=== PATIENT | female | born 1955 | race Caucasian/White ===

== ENCOUNTER 2021-07-12 18:02 | Inpatient (IN) | payer OTHER, MEDICAID ==
[~2021-07-12] VITALS: Ht 172.7 cm; Wt 90.7 kg
[~2021-07-12 18:02] MED LIST: ALEN70TA74; CLON0.5T10; DIVA500T2; LEVO50TA7; METO25TA5; PRAZ2CAP; QUET100T47 PO; SIMV-13; VENL150C58
[2021-07-12 18:31] LABS: Basophils # (auto) 0 10 ^3/uL (0-0.2); Basophils % (auto) 0.4 % (0.0-2.0); Eosinophils # (auto) 0.2 10 ^3/uL (0-0.8); Eosinophils % (auto) 5.1 % (0.0-7.0); Hematocrit 37.8 % (36.0-46.0); Hemoglobin 12.4 g/dL (12.2-16.2); Lymphocytes # (auto) 1.1 10 ^3/uL (0.4-5.4); Lymphocytes % (auto) 23.3 % (10.0-50.0); Mean Corpuscular Hemoglobin 29.4 pg (28.0-32.0); Mean Corpuscular Hgb Conc. 32.8 g/dL (32.0-36.0); Mean Corpuscular Volume 89.7 fL (80.0-100.0); Monocytes # (auto) 0.6 10 ^3/uL (0-1.3); Monocytes % (auto) 11.8 % (0.0-12.0); Neutrophils # (auto) 2.9 10 ^3/uL (1.6-8.6); Neutrophils % (auto) 59.4 % (37.0-80.0); Nucleated Red Blood Cells % 0.1 %; Red Blood Cells 4.22 10^6/uL (4.0-5.20); Red Cell Distribution Width 13.5 % (11.8-14.3); White Blood Cell 4.9 10^3/uL (4.4-10.8)
[2021-07-12 18:48] LABS: Albumin 3.3 g/dL (3.4-5.0); Anion Gap 2 (5-15); Blood Urea Nitrogen 12 mg/dL (7-18); Calcium 8.6 mg/dL (8.5-10.1); Carbon Dioxide 34 mmol/L (21-32); Chloride 100 mmol/L (98-107); Glucose 97 mg/dL (74-106); Potassium 4.5 mmol/L (3.5-5.1); Sodium 136 mmol/L (136-145)
[2021-07-12 18:56] LABS: Alanine Aminotransferase 23 U/L (13-56); Alkaline Phosphatase 64 U/L (45-117); Aspartate Aminotransferase 18 U/L (15-37); BUN/Creatinine Ratio 19.4; Bilirubin, Total 0.2 mg/dL (0.2-1.0); GFR African American 124 mL/min; GFR Non-African American 103 mL/min; Total Protein 6.8 g/dL (6.4-8.2)
[2021-07-12] MEDS ORDERED: VANCOMYCIN 1GM/250ML 250 ML IV ONE (22:15)
[2021-07-13] MEDS ORDERED: ONDANSETRON HCL 4 MG/2 ML VIAL IV PRN (01:00)
[2021-07-13] MEDS ORDERED: NITROGLYCERIN 0.4 MG SL TAB SL PRN (01:00)
[2021-07-13] MEDS ORDERED: VANCOMYCIN PER PHARMACY 0 MG IV SCH (01:00)
[2021-07-13] MEDS ORDERED: ACETAMINOPHEN 325 MG TAB PO PRN (01:00)
[2021-07-13] MEDS ORDERED: TEMAZEPAM 15 MG CAP PO PRN (01:00)
[2021-07-13] MEDS: MORPHINE SULFATE INJECTION 2 MG/ML SYRG IV PRN ×3 (02:25→13:38)
[2021-07-13] MEDS ORDERED: OMEP20TA PO (05:12)
[2021-07-13] MEDS ORDERED: ASPI-543 PO (05:20)
[2021-07-13] MEDS ORDERED: QUET400T13 PO (05:20)
[2021-07-13] MEDS ORDERED: OXYC325T14 PO (05:20)
[2021-07-13] MEDS ORDERED: CLON0.1T PO (05:20)
[2021-07-13] MEDS: HYDROcodone-ACET 5/325MG TAB PO PRN ×2 (05:52→10:00)
[2021-07-13] MEDS ORDERED: LEVOTHYROXINE SODIUM 50 MCG TAB PO SCH (07:00)
[2021-07-13] MEDS ORDERED: POM PO (07:33)
[2021-07-13 09:00] VITALS: BP 159/75
[2021-07-13] MEDS ORDERED: cefTRIAXone 1GM/50ML D5W 50 ML IV SCH (09:00)
[2021-07-13] MEDS ORDERED: VENLAFAXINE HCL 37.5MG TABLET PO SCH (10:00)
[2021-07-13] MEDS ORDERED: METOPROLOL TARTRATE 25 MG TAB PO SCH (10:00)
[2021-07-13] MEDS ORDERED: ENOXAPARIN SOD 40 MG/0.4 ML SYRINGE SC SCH (10:00)
[2021-07-13 13:00] VITALS: BP 155/86
[2021-07-13] MEDS ORDERED: MEROPENEM 1GM IVPB 100 ML IV SCH (14:00)
[2021-07-13] MEDS ORDERED: OXYCODONE W/ ACETAMINOPHEN 5/325MG TABLET PO ONE (16:00)
[2021-07-13 17:00] VITALS: BP 150/71
[2021-07-13] MEDS ORDERED: PENICILLIN G POTASSIUM 3,000,000 UNITS in D5W 5% 50 ML IV SCH (18:00)
[2021-07-13] MEDS ORDERED: TRIO1TP TOP (18:27)
[2021-07-13] MEDS ORDERED: AMOX500C2 PO (18:27)
[2021-07-13] MEDS ORDERED: ATORVASTATIN 20 MG TAB PO SCH (22:00)
[2021-07-13] MEDS ORDERED: TRIAMCINOLONE ACET 0.1% TOPICAL CREAM 15GM TOP SCH (22:00)
== END 2021-07-13 19:55 | disposition home or self-care (01) | DRG 603 ==
LOC: EDBD 18:02 → ER 18:06 → OVERFLOW 07-13 00:56 → CENTRAL 07-13 04:15
PROVIDERS: ADMIT Nurse Practitioner; ATTEND Internal Medicine
DX: L03.116 Cellulitis of left lower limb (principal); I69.354 Hemiplegia and hemiparesis following cerebral infarction affecting left non-dominant side; L25.9 Unspecified contact dermatitis, unspecified cause; E66.9 Obesity, unspecified; I10 Essential (primary) hypertension; E03.9 Hypothyroidism, unspecified; E78.5 Hyperlipidemia, unspecified; J44.9 Chronic obstructive pulmonary disease, unspecified; Z20.822 Contact with and (suspected) exposure to COVID-19; F41.9 Anxiety disorder, unspecified; F31.9 Bipolar disorder, unspecified; G40.909 Epilepsy, unspecified, not intractable, without status epilepticus; K21.9 Gastro-esophageal reflux disease without esophagitis; M19.90 Unspecified osteoarthritis, unspecified site; G89.4 Chronic pain syndrome; Z68.30 Body mass index [BMI] 30.0-30.9, adult; Z88.1 Allergy status to other antibiotic agents
CPT/HCPCS: 36415; 71045; 80053; 83880; 84484; 85025; 87040; 87077; 87186; 87426; 93970; 96365; G0378; J2185; J7060